=== PATIENT | female | born 1945 | race Caucasian/White ===

== ENCOUNTER 2017-02-05 13:42 | Emergency (ER) | payer OTHER ==
[2017-02-05 13:50] VITALS: BP 119/64; PULSE 62; TEMP 98.3; BMI 27.4
[2017-02-05] MEDS ORDERED: DIPHTH,PERTUSS(ACELL),TET 0.5 ML DISP.SYRIN IM ONE (15:34)
--- NOTE | 2017-02-05 15:36 | PDOC ---
History of Present Illness - General Chief Complaint: Injury Stated Complaint: INJURY Time Seen by Provider: 02/05/17 15:22 History Source: Patient Exam Limitations: No Limitations - History of Present Illness Initial Comments: 02/05/17 15:38 My chief complaint: Fall, left ankle pain, left large toe pain, abrasions left leg History of present illness: Patient is a 72-year-old female with history of diabetes, breast cancer with bilateral mastectomy, Alzheimer's here today due to falling outside today twisting her left ankle. Patient denies any pain of her wrist, head, patient denies hitting her head. Patient complaining of pain to her left ankle and left large toe. Patient has an abrasion just below her left knee and left anterior lower leg. Patient denies any numbness of her left leg or any back pain. Occurred: reports: just prior to arrival Severity: reports: moderate Pain Location: reports: lower extremity (left foot/large toe/ankle) Method of Injury: Yes: fall Modifying Factors: improves with: None Loss of Consciousness: no loss of consciousness Associated Symptoms (Fall): trouble walking, other (abrasion left lower leg, and below left knee) Past History - Past Medical History Allergies/Adverse Reactions: Allergies Allergy/AdvReac Type Severity Reaction Status Date / Time No Known Allergies Allergy Verified 02/05/17 13:47 Home Medications: Ambulatory Orders Unobtainable [Unobtainable] 12/27/14 Anemia: No Asthma: No Cancer: Yes (breast) Cardiac Disorders: No CVA: No COPD: No CHF: No Dementia: Yes (ALZHEIMERS) Diabetes: Yes GI Disorders: No Disorders: No HTN: No Hypercholesterolemia: No Liver Disease: No Seizures: No Thyroid Disease: No - Surgical History Abdominal Surgery: Yes (HYSTERECTOMY) Cardiac Surgery: No Cholecystectomy: No Lung Surgery: No Neurologic Surgery: No Orthopedic Surgery: No - Suicide/Smoking/Psychosocial Hx Smoking History: Never smoked Have you smoked in the past 12 months: No If you are a former smoker, when did you quit?: 10yrs ago Hx Alcohol Use: No Drug/Substance Use Hx: No Substance Use Type: None Hx Substance Use Treatment: No Review of Systems - Review of Systems Able to Perform ROS?: Yes Constitutional: No: Symptoms Reported HEENTM: No: Symptoms Reported Respiratory: No: Symptoms reported Cardiac (ROS): No: Symptoms Reported ABD/GI: No: Symptoms Reported : No: Symptoms Reported Musculoskeletal: Yes: Joint Pain (LEFT LARGE TOE PAIN, LEFT LATERAL ANKLE PAIN) , Joint Swelling (LEFT LATERAL ANKLE PAIN ) Integumentary: Yes: Other (ABRASION BELOW LEFT KNEE, ABRASION LEFT ANTERIOR LOWER LEG ) Neurological: No: Symptoms reported *Physical Exam - Vital Signs Last Vital Signs Temp Pulse Resp BP Pulse Ox 98.3 F 62 18 119/64 100 02/05/17 13:47 02/05/17 13:47 02/05/17 13:47 02/05/17 13:47 02/05/17 13:47 - Physical Exam General Appearance: Yes: Appropriately Dressed Neck: negative: Tender, Rigidity, Tender lateral, Tender midline Respiratory/Chest: positive: Lungs Clear, Normal Breath Sounds. negative: Chest Tender, Respiratory Distress Cardiovascular: positive: Regular Rhythm, Regular Rate, S1, S2 Vascular Pulses: Doralis-Pedis (L): 4+ Musculoskeletal: positive: Normal Inspection. negative: CVA Tenderness, CVA Tenderness (R), CVA Tenderness (L), Vertebral Tenderness Extremity: positive: Normal Capillary Refill, Normal Range of Motion (LEFT FOOT/ TOES, LEFT KNEE), Tender (LEFT LARGE TOE, LEFT LATERAL ANKLE), Other (NEGATIVE LEFT KNEE POSTERIOR/ANTERIOR DRAWER ). negative: Normal Inspection Integumentary: positive: Other (ABRASION QUARTER SIZE SLIGHTLY BELOW LEFT KNEE, ANTERIOR LOWER LEG) Neurologic: positive: Alert, Normal Response, Respond to painful stimul, Responsive. negative: Numbness, Sensory Deficit (LEGS ) Procedures - Consent Consent obtained: From Patient - Splinting Splint Location: Left: Ankle Pre-Proc Neuro Vasc Exam: normal Post-Proc Neuro Vasc Exam: normal Sling: No Complications: No Medical Decision Making - Medical Decision Making 02/05/17 15:40 Patient is a 72-year-old female with history of diabetes, breast cancer with bilateral mastectomy, Alzheimer's here today due to falling outside today twisting her left ankle. Patient denies any pain of her wrist, head, patient denies hitting her head. Patient complaining of pain to her left ankle and left large toe. Patient has an abrasion just below her left knee and left anterior lower leg. Patient denies any numbness of her left leg or any back pain. Fall rule out fracture left foot and ankle ABRASION LEFT LEG Plan: TDAP 0.5 mL IM now X-ray left foot ankle Abrasions on left leg cleansed with Betadine and normal saline 0.9% tiny amount of bacitracin ointment applied 02/05/17 15:52 02/05/17 16:29 ankle immobilizer left *DC/Admit/Observation/Transfer Diagnosis at time of Disposition: Fall Qualifiers: Encounter type: initial encounter Qualified Code(s): W19.XXXA - Unspecified fall, initial encounter; W19.XXXA - Unspecified fall, initial encounter Abrasion of leg, left Qualifiers: Encounter type: initial encounter Qualified Code(s): S80.812A - Abrasion, left lower leg, initial encounter; S80.812A - Abrasion, left lower leg, initial encounter Left ankle sprain Qualifiers: Encounter type: initial encounter Involved ligament of ankle: unspecified ligament Qualified Code(s): S93.402A - Sprain of unspecified ligament of left ankle, initial encounter; S93.402A - Sprain of unspecified ligament of left ankle, initial encounter - Discharge Dispostion Disposition: HOME Condition at time of disposition: Stable - Referrals Referrals: Malinda Ibanez [Primary Care Provider] - Berny Harris MD [Staff Physician] - - Patient Instructions Additional Instructions: Elevate your left leg as much as possible and apply ice to your ankle area that is swollen Wear Silvestre wrap on left foot and ankle area and ankle immobilizer during the day take off at night Cleanse abrasions on leg with antibacterial soap and water pat dry and apply bacitracin ointment Take ibuprofen as needed as directed by broadcast traffic coordinator for pain Patient and her friend voiced understanding of discharge instructions and all questions were answered Elevate your left leg as much as possible and apply ice to your ankle area that is swollen Wear Silvestre wrap on left foot and ankle area and ankle immobilizer during the day take off at night Cleanse abrasions on leg with antibacterial soap and water pat dry and apply bacitracin ointment Take ibuprofen as needed as directed by broadcast traffic coordinator for pain Patient and her friend voiced understanding of discharge instructions and all questions were answered
[2017-02-05] MEDS ORDERED: IBUPROFEN 600 MG TABLET (FP) PO ONE ×2 (16:29→16:32)
== END 2017-02-05 16:53 | disposition home or self-care (01) ==
LOC: JERFT 13:42
PROC: 3E0234Z Introduction of Serum, Toxoid and Vaccine into Muscle, Percutaneous Approach (ICD-10-PCS; principal; 2017-02-05)
DX: S93.402A Sprain of unspecified ligament of left ankle, initial encounter (principal); S80.812A Abrasion, left lower leg, initial encounter; W18.39XA Other fall on same level, initial encounter; Y93.89 Activity, other specified; Y92.89 Other specified places as the place of occurrence of the external cause
CPT/HCPCS: 73610-TC-LT; 73630-TC-LT; 90715; 99281-25

== ENCOUNTER 2018-10-23 22:12 | Emergency (ER) | payer OTHER ==
[2018-10-23 22:24] VITALS: TEMP 98.3; BMI 27.9
[2018-10-23] MEDS ORDERED: ONDANSETRON 4 MG/2 ML VIAL IVPUSH ONE (23:02)
[2018-10-23] MEDS ORDERED: morphine SULFATE 4 MG/ML VIAL IVPUSH ONE (23:02)
[2018-10-23] MEDS ORDERED: morphine SULFATE 4 MG/ML VIAL ONE (23:03)
--- NOTE | 2018-10-23 23:22 | PDOC ---
History of Present Illness - General Chief Complaint: Pain Stated Complaint: RT CHEST PAIN Time Seen by Provider: 10/23/18 22:31 History Source: Patient, Family (son) Exam Limitations: No Limitations - History of Present Illness Initial Comments: 10/23/18 23:17 73 yo female pmh breast CA s/p bilateral mastectomy 2011, renal CA s/p right kidney partial resection 2012, gall bladder removed 2016, IDDM, HTN, HLD, alz dementia presents to the ED after sudden onset epigastric pain. Pts son at bedside, translates and also provides hx due to pt alz hx and poor historian. Pain started suddenly at 2 pm today, not related to eating or drinking, located epigastric region with radiation to the left lower quadrant, described as severe and made worse with movement. Denies radiation to the back, F/C/N/V, CP, SOB. Denies recent travel sick contacts, eating new or different foods, calf tenderness. Pt ambulates at home. Son states he does not know when the patient last had a bowel movement and pt very defensive when asked the question. 0 Past History - Past Medical History Allergies/Adverse Reactions: Allergies Allergy/AdvReac Type Severity Reaction Status Date / Time No Known Allergies Allergy Verified 10/23/18 22:24 Home Medications: Ambulatory Orders Polyethylene Glycol 3350 [Miralax (For Bowel Prep) -] 17 gm PO DAILY #1 bottle 10/24/18 Anemia: No Asthma: No Cancer: Yes (breast) Cardiac Disorders: No CVA: No COPD: No CHF: No Dementia: Yes (ALZHEIMERS) Diabetes: Yes GI Disorders: No Disorders: No HTN: No Hypercholesterolemia: No Liver Disease: No Seizures: No Thyroid Disease: No - Surgical History Abdominal Surgery: Yes (HYSTERECTOMY) Cardiac Surgery: No Cholecystectomy: No Lung Surgery: No Neurologic Surgery: No Orthopedic Surgery: No - Suicide/Smoking/Psychosocial Hx Smoking History: Never smoked Have you smoked in the past 12 months: No If you are a former smoker, when did you quit?: 10yrs ago Hx Alcohol Use: No Drug/Substance Use Hx: No Substance Use Type: None Hx Substance Use Treatment: No Review of Systems - Review of Systems Constitutional: No: Chills, Fever Respiratory: No: Shortness of Breath, Productive cough Cardiac (ROS): No: Chest Pain, Edema ABD/GI: Yes: Abdominal cramping (severe abdominal pain with movement). No: Constipated, Diarrhea, Nausea, Vomiting : No: Burning, Dysuria, Discharge, Frequency, Flank Pain, Hematuria Musculoskeletal: No: Back Pain Integumentary: No: Change in Color Neurological: No: Numbness, Paresthesia, Weakness *Physical Exam - Vital Signs Last Vital Signs Temp Pulse Resp BP Pulse Ox 98.3 F 80 18 136/68 97 10/23/18 22:21 10/23/18 22:21 10/23/18 22:21 10/23/18 22:21 10/23/18 22:21 - Physical Exam General Appearance: Yes: Nourished, Appropriately Dressed, Apparent Distress ( only with palpation of the abdomen or with movement) HEENT: positive: EOMI, Normal Voice Neck: positive: Supple. negative: Carotid bruit Respiratory/Chest: positive: Lungs Clear, Normal Breath Sounds. negative: Respiratory Distress, Rapid RR, Crackles, Rales, Rhonchi, Wheezing Cardiovascular: positive: Regular Rhythm, Regular Rate, S1, S2. negative: Edema , JVD, Murmur Vascular Pulses: Dorsalis-Pedis (R): 3+, Doralis-Pedis (L): 3+ Gastrointestinal/Abdominal: positive: Flat, Soft, Guarding (resolved), Tenderness. negative: Distended, Rebound Musculoskeletal: negative: CVA Tenderness Extremity: positive: Normal Capillary Refill, Normal Inspection Integumentary: positive: Normal Color, Dry, Warm Neurologic: positive: Alert, Normal Mood/Affect, Normal Response, Motor Strength 5/5 ED Treatment Course - LABORATORY CBC & Chemistry Diagram: 10/23/18 23:05 10/23/18 23:05 - RADIOLOGY Radiology Studies Ordered: Category Date Time Status ABDOMEN [id number] [RAD] Stat Radiology 10/23/18 22:56 Ordered CHEST X-RAY PORTABLE* [RAD] Stat Radiology 10/23/18 22:56 Ordered Medical Decision Making - Medical Decision Making 10/24/18 04:04 28 yo female with 1 miscarriage currently 22 weeks presents to the ED for 2 days of F/C, diffuse body aches and LO. 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 Pt denies recent travel, cough, congestion, sinus pain, ear pain, CP, SOB, abdominal pain. Last US 2 weeks ago (OB in [place]) reported as normal as per pt. Pt tried advil yesterday for LO yesterday with some relief and at 9 pm took 1000mg Tylenol but continues to complain of chills and LO. Vitals WNL Pt had gaurding on initial exam, stat flat/upright and CXR ordered at bedside, neg for free air Labs WNL glucose elevated trop neg CTAP neg for perforation and SBO. diffuse stool noted which is likely causing pts pain Pt will be DC with Miralax, PCP and GI f/u family aware, all questions answered *DC/Admit/Observation/Transfer Diagnosis at time of Disposition: Constipation - Discharge Dispostion Disposition: HOME Condition at time of disposition: Stable Decision to Admit order: No - Prescriptions Prescriptions: Polyethylene Glycol 3350 [Miralax (For Bowel Prep) -] 17 gm PO DAILY #1 bottle - Referrals Referrals: Pacheco Hernandez MD [Staff Physician] - - Patient Instructions Printed Discharge Instructions: DI for Constipation Additional Instructions: Please see your primary doctor within the next 48 hours. Make an appointment with your GI doctor. Take the medication Miralax as prescribed which was sent to your pharmacy. Return to the ER for new or concerning symptoms including but not limited to: abdominal pain, back pain, inability to eat or drink, high fevers. Thank you - Post Discharge Activity
[2018-10-23 23:24] LABS: HEMATOCRIT 39.5 % (32.4-45.2); MCH 27.7 pg (25.7-33.7); MEAN PLT VOLUME 7.8 fl (7.5-11.1); PLATELET COUNT 195 K/MM3 (134-434); RDW 15.2 % (11.6-15.6); WHITE BLOOD COUNT 6.6 K/mm3 (4.0-10.0)
[2018-10-23 23:37] LABS: INR 1.08 (0.83-1.09); PROTHROMBIN TIME (PATIENT) 12.8 SEC (9.7-13.0)
[2018-10-23] MEDS ORDERED: ONDANSETRON 4 MG/2 ML VIAL ONE (23:42)
[2018-10-23] MEDS ORDERED: SODIUM CHLORIDE 500 ML IV STA (23:53)
[2018-10-23 23:55] LABS: ALBUMIN 2.8 g/dl (3.4-5.0); ALK PHOS 148 U/L (45-117); ANION GAP 5 MMOL/L (8-16); BILIRUBIN,TOTAL 0.6 mg/dL (0.2-1); BLOOD UREA NITROGEN 13.2 mg/dL (7-18); CALCIUM 8.1 mg/dL (8.5-10.1); CHLORIDE 103 mmol/L (98-107); CO2 28 mmol/L (21-32); CREATININE 1.1 mg/dL (0.55-1.3); GLUCOSE,RANDOM 247 mg/dL (74-106); POTASSIUM 3.9 mmol/L (3.5-5.1); SGOT/AST 56 U/L (15-37); SGPT/ALT 54 U/L (13-61); SODIUM 137 mmol/L (136-145); TOT PROT 7.4 g/dl (6.4-8.2)
--- NOTE | 2018-10-24 01:03 | PDOC ---
Attending Attestation - Resident Resident Name: Jamie Foster - ED Attending Attestation I have performed the following: I have examined & evaluated the patient, The case was reviewed & discussed with the resident, I agree w/resident's findings & plan, Exceptions are as noted - HPI HPI: 10/24/18 00:49 73 F with h/o breast CA s/p mastectomy, renal CA s/p partial nephrectomy, DM, HTN, HLD, dementia, presenting to ED with abdominal pain. Family reports that the pain started at 2PM, localized to epigastric region. Pt with no nausea or vomiting. No diarrhea/constipation. Pt states pain radiates to LLQ. No F/C. No Cp/SOB. - Physicial Exam PE: 10/24/18 01:03 GENERAL: Awake, alert, and fully oriented, in no acute distress. HEAD: No signs of trauma EYES: PERRLA, EOMI, sclera anicteric, conjunctiva clear ENT: Auricles normal inspection, hearing grossly normal, nares patent, oropharynx clear without exudates. Moist mucosa NECK: Nontender, no stepoffs, Normal ROM, supple, no lymphadenopathy, JVD, or masses LUNGS: Breath sounds equal, clear to auscultation bilaterally. No wheezes, and no crackles HEART: Regular rate and rhythm, normal S1 and S2, no murmurs, rubs or gallops ABDOMEN: + diffusely tender, mildly distended, No guarding, no rebound. No masses EXTREMITIES: Normal range of motion, no edema. No clubbing or cyanosis. No cords, erythema, or tenderness NEUROLOGICAL: Cranial nerves II through XII intact. 5/5 strength and sensation in all extremities, Normal speech, normal gait, normal cerebellar function SKIN: Warm, Dry, normal turgor, no rashes or lesions noted. - Medical Decision Making 10/24/18 01:04 73 F with abdominal pain. Distended abdomen diffusely tender. Concerning for SBO. - Labs - CTAP 10/24/18 04:12 Labs wnl prelim read of CT with no acute pathology Pt reassessed - is eating sandwich and juice, denies any pain at this time. Repeat abdominal exam completely benign. Pt is well appearing, with normal vitals. Clinically stable for DC at this time. I discussed the physical exam findings, ancillary test results and final diagnoses with the patients family. I answered all of their questions. The family was satisfied with the care received and felt comfortable with the discharge plan and treatment plan. They agree to follow up with the primary care physician within 24-72 hours.
[2018-10-24 02:54] LABS: URINE APPEARANCE CLEAR; URINE BILIRUBIN NEGATIVE (NEGATIVE); URINE COLOR YELLOW; URINE GLUCOSE (UA) 3+ (NEGATIVE); URINE KETONE NEGATIVE (NEGATIVE); URINE LEUK ESTERASE NEGATIVE (NEGATIVE); URINE NITRITE NEGATIVE (NEGATIVE); URINE PROTEIN NEGATIVE (NEGATIVE)
[2018-10-24 04:29] VITALS: BP 131/73; PULSE 76
--- NOTE | 2018-10-24 13:02 | EKG ---
Test Reason : Blood Pressure : / mmHG Vent. Rate : 068 BPM Atrial Rate : 068 BPM P-R Int : 160 ms QRS Dur : 088 ms QT Int : 406 ms P-R-T Axes : 032 005 053 degrees QTc Int : 431 ms NORMAL SINUS RHYTHM INCOMPLETE RBBB BORDERLINE ECG Confirmed by MD ELÍAS, NITZA ([id number]) on 10/24/2018 1:01:53 PM Referred By: Confirmed By:NITZA MCKINLEY MD
== END 2018-10-24 04:27 | disposition home or self-care (01) ==
LOC: JER 22:12
DX: K59.00 Constipation, unspecified (principal); I10 Essential (primary) hypertension; E78.5 Hyperlipidemia, unspecified; E11.9 Type 2 diabetes mellitus without complications; Z79.4 Long term (current) use of insulin; G30.8 Other Alzheimer's disease; F02.80 Dementia in other diseases classified elsewhere, unspecified severity, without behavioral disturbance, psychotic disturbance, mood disturbance, and anxiety; Z85.3 Personal history of malignant neoplasm of breast; Z85.528 Personal history of other malignant neoplasm of kidney; Z90.13 Acquired absence of bilateral breasts and nipples; Z90.5 Acquired absence of kidney
CPT/HCPCS: 36415; 71045-TC-FY; 74021-TC-FY; 74177-TC; 80053; 81003; 82550; 83605; 83690; 84484; 85027; 85610; 86850; 86900; 86901; 87086; 93005; 93010; 99282-25

== ENCOUNTER 2021-09-17 17:45 | Inpatient (IN) | payer OTHER ==
[2021-09-17] MEDS ORDERED: SODIUM CHLORIDE 2,422 ML IV ONE (19:33)
[2021-09-17 20:26] LABS: BASO % 0.5 % (0-2.0); EOS % 0.3 % (0-4.5); HEMATOCRIT 29.1 % (32.4-45.2); HEMOGLOBIN 9.4 GM/dL (10.7-15.3); LYMPH % 6.5 % (8-40); MCH 30.9 pg (25.7-33.7); MCHC 32.4 g/dl (32.0-36.0); MEAN CELL VOLUME 95.4 fl (80-96); MEAN PLT VOLUME 7.8 fl (7.5-11.1); MONO % 7.8 % (3.8-10.2); NEUT % 84.9 % (42.8-82.8); PLATELET COUNT 205 10^3/uL (134-434); RBC 3.05 M/mm3 (3.60-5.2); RDW 21.1 % (11.6-15.6); WHITE BLOOD COUNT 7.1 K/mm3 (4.0-10.0)
[2021-09-17 20:32] LABS: INR 1.06 (0.83-1.09); PROTHROMBIN TIME (PATIENT) 12.2 SEC (9.7-13.0)
[2021-09-17 20:35] LABS: ACTIVATED PTT 23.7 SECONDS (25.2-36.5)
[2021-09-17] MEDS ORDERED: ONDANSETRON 4 MG/2 ML VIAL IVPUSH ONE (21:02)
[2021-09-17 21:03] LABS: ALBUMIN 2.3 g/dl (3.4-5.0); BLOOD UREA NITROGEN 29.3 mg/dL (7-18)
[2021-09-17 21:06] LABS: CREATININE 1.2 mg/dL (0.55-1.3)
[2021-09-17] MEDS ORDERED: ONDANSETRON 4 MG/2 ML VIAL ONE (21:06)
[2021-09-17 21:07] LABS: BILIRUBIN,TOTAL 1.2 mg/dL (0.2-1); TOT PROT 5.8 g/dl (6.4-8.2)
[2021-09-17 21:11] LABS: LACTIC ACID 5.5 mmol/L (0.4-2.0)
[2021-09-17] MEDS ORDERED: SODIUM CHLORIDE 1,000 ML IV SCH ×2 (21:15→21:22)
[2021-09-17 22:37] LABS: ANISOCYTOSIS 1+; MACROCYTOSIS 1+; PLATELET ESTIMATE NORMAL
[2021-09-17 22:38] LABS: EPI CELLS >36 /uL (0-25.1); HYALINE CASTS 16 /uL (0-3.1); URINE APPEARANCE CLOUDY; URINE BACTERIA 348 /uL (0-1359); URINE BILIRUBIN 1+ (NEGATIVE); URINE COLOR DK YELLOW; URINE GLUCOSE (UA) NEGATIVE (NEGATIVE); URINE KETONE TRACE (NEGATIVE); URINE LEUK ESTERASE NEGATIVE (NEGATIVE); URINE NITRITE NEGATIVE (NEGATIVE); URINE PROTEIN 3+ (NEGATIVE); URINE RBC 24 /uL (0-23.9)
[2021-09-18 02:55] LABS: LACTIC ACID 4.9 mmol/L (0.4-2.0)
[2021-09-18] MEDS: INSULIN SLIDING SCALE (NOVOLOG) 1 VIAL SQ SCH ×2 (07:43→10:51)
[2021-09-18] MEDS ORDERED: ENOXAPARIN NA (PORCINE) 40 MG/0.4 ML DISP.SYRIN SQ ONE (09:22)
[2021-09-18] MEDS ORDERED: ENOXAPARIN NA (PORCINE) 40 MG/0.4 ML DISP.SYRIN SQ SCH (10:00)
[2021-09-18 10:28] LABS: EPI CELLS >36 /uL (0-25.1); HYALINE CASTS 29 /uL (0-3.1); PH,URINE 5.5 (5.0-8.0); URINE APPEARANCE CLOUDY; URINE BACTERIA 238 /uL (0-1359); URINE BILIRUBIN NEGATIVE (NEGATIVE); URINE COLOR DK YELLOW; URINE GLUCOSE (UA) NEGATIVE (NEGATIVE); URINE KETONE TRACE (NEGATIVE); URINE LEUK ESTERASE 1+ (NEGATIVE); URINE NITRITE NEGATIVE (NEGATIVE); URINE PROTEIN 2+ (NEGATIVE); URINE RBC 43 /uL (0-23.9); URINE WBC 292 /uL (0-25.8)
[2021-09-18 10:52] LABS: YEAST FEW PRESENT (NEGATIVE)
[2021-09-18] MEDS ORDERED: AMINO ACIDS 4.25%/D5W 1,000 ML IV SCH (12:15)
[2021-09-18 12:39] VITALS: BMI 29.0
[2021-09-18 14:23] VITALS: BP 128/59; PULSE 111; TEMP 99.2
[2021-09-19] MEDS ORDERED: PANTOPRAZOLE SODIUM 40 MG VIAL IVPUSH SCH (10:00)
== END 2021-09-18 14:28 | disposition short-term general hospital (02) | DRG 841 ==
LOC: JER 17:45 → JERBED 23:39 → J6S 09-18 10:39
PROVIDERS: ADMIT Hospitalist; ATTEND Internal Medicine
DX: C83.30 Diffuse large B-cell lymphoma, unspecified site (principal); E87.2 Acidosis; E78.5 Hyperlipidemia, unspecified; I10 Essential (primary) hypertension; E11.9 Type 2 diabetes mellitus without complications; R62.7 Adult failure to thrive; G30.9 Alzheimer's disease, unspecified; F02.80 Dementia in other diseases classified elsewhere, unspecified severity, without behavioral disturbance, psychotic disturbance, mood disturbance, and anxiety; Z85.528 Personal history of other malignant neoplasm of kidney; Z85.3 Personal history of malignant neoplasm of breast; R60.0 Localized edema
CPT/HCPCS: 36415; 71045-TC-FY; 80053; 81003; 82553; 82962; 83605; 84484; 85025; 85610; 85730; 87040; 87086; 87186; 87804; 87807; 93005; 93010; 99285-25; C9803-CS; U0003; U0005

== ENCOUNTER 2022-01-21 19:28 | Emergency (ER) | payer OTHER ==
[2022-01-21 19:40] VITALS: BP 126/59; PULSE 88; RESP 17; TEMP 98.8; BMI 25.7
[2022-01-21] MEDS ORDERED: ACETAMINOPHEN 650 MG/20.3 ML ORAL SOLUTION (CUPS) PO ONE (20:23)
[2022-01-21] MEDS ORDERED: ACETAMINOPHEN 325 MG TABLET (FP) ONE (20:26)
== END 2022-01-21 23:52 | disposition home or self-care (01) ==
LOC: JER 19:28
DX: S82.201A Unspecified fracture of shaft of right tibia, initial encounter for closed fracture (principal); W19.XXXA Unspecified fall, initial encounter
CPT/HCPCS: 72170-TC-FY; 73562-TC-RT-FY; 73590-TC-RT-FY; 99284-25